=== PATIENT | female | born 1950 | race Caucasian/White ===

== ENCOUNTER → 2017-05-29 | Outpatient (CLI) | payer OTHER | END | disposition home or self-care (01) | LOC: US 12:11 | DX: S20.02XA Contusion of left breast, initial encounter (principal); X58.XXXA Exposure to other specified factors, initial encounter; Y93.89 Activity, other specified; Y92.89 Other specified places as the place of occurrence of the external cause; Y99.8 Other external cause status ==

== ENCOUNTER 2020-12-24 11:38 | Observation (INO) | payer MEDICARE ==
[2020-12-24] VITALS (10 sets, daily range): BP systolic 142–200; BP diastolic 69–102
[~2020-12-24] VITALS: Ht 160 cm; Wt 84.8 kg
[2020-12-24 12:19] LABS: BILIRUBIN Negative (Negative); BLOOD Negative (Negative); CLARITY Clear (Clear); COLOR Yellow (Yellow); GLUCOSE 1+ (Negative); KETONE 1+ (Negative); LEUKO ESTERASE Negative (Negative); NITRITE Negative (Negative); UROBILINOGEN 0.2 E.U./dl (0.0-1.0)
[2020-12-24 12:24] LABS: BASO % 0.2 % (0.0-1.0); EOS # 0.1 10*3/uL (0.0-0.4); EOS % 0.9 % (1.0-4.0); HEMATOCRIT 37.5 % (37.0-47.0); LYMPH # 0.8 10*3/uL (1.3-4.4); LYMPH % 9.3 % (27.0-41.0); MEAN CELL VOLUME 88.9 fl (81.0-99.0); MEAN CORPUSCULAR HGB 30.1 pg (27.0-31.0); MEAN CORPUSCULAR HGB CONC 33.9 g/dl (33.0-37.0); MEAN PLATELET VOLUME 10.2 fl (9.6-12.3); MONO # 0.4 10*3/uL (0.1-1.0); MONO % 4.4 % (3.0-9.0); NEUT # 6.9 10*3/uL (2.3-7.9); NEUT % 84.8 % (47.0-73.0); PLATELET COUNT AUTOMATED 197 10*3/uL (130-400); RED BLOOD COUNT 4.22 10*6/uL (4.10-5.10); RED CELL DISTRI WIDTH 13.2 % (0-14.5); WHITE BLOOD COUNT 8.2 10*3/uL (4.8-10.8)
[2020-12-24 12:33] LABS: EPITHELIAL CELLS 0-2; RBC 0-2 rbc/hpf (0-2); WBC 0-2 wbc/hpf (0-5)
[2020-12-24 12:46] LABS: BUN 15 mg/dl (7-24); CHLORIDE 105 mmol/L (98-107); CREATININE 0.69 mg/dL (0.55-1.02); POTASSIUM 3.8 mmol/L (3.5-5.1); SGOT/AST 14 IU/L (3-35); SGPT/ALT 33 U/L (12-78); SODIUM 140 mmol/L (136-145); TOTAL PROTEIN 7.4 gm/dL (6.4-8.2)
[2020-12-24 12:48] LABS: ALKALINE PHOSPHATASE 60 U/L (45-117)
[2020-12-24] MEDS ORDERED: ARMOUR THYROID90 M1 PO (14:33)
[2020-12-24] MEDS ORDERED: CARVEDILOL12.5 MG PO (14:34)
[2020-12-24] MEDS ORDERED: QUINAPRIL20 MG PO (14:34)
[2020-12-25] VITALS: BP 122/48
[2020-12-25 06:35] LABS: HEMATOCRIT 35.3 % (37.0-47.0); MEAN CELL VOLUME 88.7 fl (81.0-99.0); MEAN CORPUSCULAR HGB 30.2 pg (27.0-31.0); MEAN PLATELET VOLUME 10.9 fl (9.6-12.3); PLATELET COUNT AUTOMATED 219 10*3/uL (130-400); RED BLOOD COUNT 3.98 10*6/uL (4.10-5.10); RED CELL DISTRI WIDTH 13.1 % (0-14.5); WHITE BLOOD COUNT 6.6 10*3/uL (4.8-10.8)
[2020-12-25 06:50] LABS: ALBUMIN 3.4 gm/dl (3.1-4.5); BUN 17 mg/dl (7-24); CHLORIDE 105 mmol/L (98-107); POTASSIUM 3.4 mmol/L (3.5-5.1); SODIUM 136 mmol/L (136-145)
[2020-12-25 06:58] LABS: ALKALINE PHOSPHATASE 56 U/L (45-117); CHOLESTEROL 188 mg/dL (<200); CREATININE 0.93 mg/dL (0.55-1.02); FREE T4 0.97 ng/dl (0.76-1.46); HDL CHOLESTEROL 77 mg/dl (40-60); LDL CHOLESTEROL 96 mg/dL (9-159); SGOT/AST 9 IU/L (3-35); SGPT/ALT 31 U/L (12-78); THYROID STIM HORMONE (HS) 0.597 uIU/ml (0.358-4.75); TOTAL PROTEIN 6.9 gm/dL (6.4-8.2); TRIGLYCERIDES 76 mg/dl (<150); VLDL CHOLESTEROL 15 mg/dL (6-40)
[2020-12-25 07:45] LABS: VITAMIN D, 25-HYDROXY 44.6 ng/mL (30-100)
[2020-12-25 07:46] LABS: PLATELET SUFFICIENCY NORMAL (NORMAL); TOTAL CELLS COUNTED 100 #CELLS
[2020-12-25 08:00] VITALS: BP 138/73
[2020-12-25] MEDS ORDERED: PERCOCET 5-3251 EACH PO ×3 (10:09→11:31)
[2020-12-25] MEDS ORDERED: ZOFRAN4 MG PO ×3 (10:09→11:30)
[2020-12-25] MEDS ORDERED: COLACE100 MG PO ×2 (10:09)
[2020-12-25] MEDS ORDERED: DOCUSATE SOD100 MG PO (11:32)
[2020-12-25 12:00] VITALS: BP 154/63
== END 2020-12-25 12:24 | disposition home or self-care (01) ==
LOC: ED 11:38 → 5E 12:52 → EDHOLD 12:52 → 5E 12:52
PROVIDERS: Student in an Organized Health Care Education/Training Program; Surgery; ADMIT Internal Medicine; ATTEND Internal Medicine
DX: K35.80 Unspecified acute appendicitis (principal); I10 Essential (primary) hypertension; E03.9 Hypothyroidism, unspecified; R10.31 Right lower quadrant pain; R73.9 Hyperglycemia, unspecified; E80.6 Other disorders of bilirubin metabolism; Z85.3 Personal history of malignant neoplasm of breast; Z98.890 Other specified postprocedural states

== ENCOUNTER → 2024-05-14 | Outpatient (CLI) | payer MEDICARE ==
[~2024-05-14] MED LIST: AMLODIPINE BESY10 MG PO; APRESOLINE25 MG PO; ARMOUR THYROID15 M1 PO; ARMOUR THYROID90 M1 PO; BLOOD PRESSURE MC; CARVEDILOL12.5 MG PO; CARVEDILOL25 MG PO; COLACE100 MG PO; DOCUSATE SOD100 MG PO; Glimepiride1 MG PO; LISINOPRIL20 MG PO; LISINOPRIL40 MG PO; PERCOCET 5-3251 EACH PO; QUINAPRIL20 MG PO; RYBELSUS3 MG PO; ZOFRAN4 MG PO
== END | disposition home or self-care (01) ==
LOC: CARD 01:44
PROVIDERS: ATTEND Internal Medicine Cardiovascular Disease
DX: I08.1 Rheumatic disorders of both mitral and tricuspid valves (principal); R06.09 Other forms of dyspnea

== ENCOUNTER → 2024-06-05 | Outpatient (CLI) | payer MEDICARE ==
[2024-06-05 12:43] LABS: BUN 16 mg/dl (9-23); CHLORIDE 104 mmol/L (98-107); POTASSIUM 3.6 mmol/L (3.4-5.1)
== END | disposition home or self-care (01) ==
LOC: LAB 11:49
PROVIDERS: ATTEND Internal Medicine Cardiovascular Disease
DX: I10 Essential (primary) hypertension (principal)